=== PATIENT | female | born 1965 | race Hispanic/Latino ===

== ENCOUNTER 2018-11-24 07:49 | Emergency (ER) | payer BC ==
--- NOTE | 2018-11-24 08:26 | ER ---
Nurse's Notes [facility] Name: Laura Art Age: 52 yrs Sex: Female : 1965 Arrival Date: 11/24/2018 Time: 07:49 Bed 24 Private MD: MAR BLACK Diagnosis: Urticaria, unspecified Presentation: 11/24 07:54 Presenting complaint: Patient states: "I just started itching everywhere except my aa5 legs". Pt states "I took 2 Benadryl right before coming here". Transition of care: patient was not received from another setting of care. Onset: The symptoms/episode began/occurred 1 hour(s) ago. Risk Assessment: Do you want to hurt yourself or someone else? Patient reports no desire to harm self or others. Initial Sepsis Screen: Does the patient meet any 2 criteria? No. Patient's initial sepsis screen is negative. Does the patient have a suspected source of infection? No. Patient's initial sepsis screen is negative. Care prior to arrival: None. 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 - Social history:: Smoking status: Patient/guardian denies using tobacco. - Ebola Screening: : No symptoms or risks identified at this time. - Family history:: not pertinent. - Hospitalizations: : No recent hospitalization is reported. Screenin:00 Abuse screen: Denies threats or abuse. Nutritional screening: No deficits noted. aa5 Tuberculosis screening: No symptoms or risk factors identified. Fall Risk None identified. Assessment: 08:01 General: Appears uncomfortable, Behavior is calm, cooperative. Pain: Denies pain. aa5 Neuro: Level of Consciousness is awake, alert, obeys commands, Oriented to person, place, time, situation. Cardiovascular: Capillary refill < 3 seconds is brisk in bilateral fingers Patient's skin is warm and dry. Respiratory: Airway is patent Respiratory effort is even, unlabored, Respiratory pattern is regular, symmetrical. GI: No signs and/or symptoms were reported involving the gastrointestinal system. : No signs and/or symptoms were reported regarding the genitourinary system. EENT: No signs and/or symptoms were reported regarding the EENT system. Derm: Skin is pink, warm \\T\\ dry. Reports itching to arms, head, feet, hands, and chest that began about an hour ago. Musculoskeletal: Range of motion: intact in all extremities. Vital Signs: 07:56 BP 171 / 83; Pulse 70; Resp 18 S; Temp 98.0(O); Pulse Ox 100% on R/A; Weight 67.13 kg aa5 (R); Height 5 ft. 3 in. (160.02 cm) (R); Pain 0/10; 07:56 Body Mass Index 26.22 (67.13 kg, 160.02 cm) aa5 ED Course: 07:49 Patient arrived in ED. sb2 07:50 MAR BLACK is Private Physician. sb2 07:54 Arm band placed on. aa5 07:54 Patient has correct armband on for positive identification. Bed in low position. Call aa5 light in reach. Side rails up X 1. 07:55 Triage completed. aa5 07:55 Jens Gutierrez MD is Attending Physician. rn 07:57 Chitra Tovar, LEIA is Primary Nurse. aa5 08:16 No provider procedures requiring assistance completed. aa5 08:38 IV discontinued, intact, bleeding controlled, No redness/swelling at site. Pressure ss dressing applied. Administered Medications: 08:19 Drug: SOLU-Medrol 125 mg Route: IM; Site: right gluteus; aa5 08:39 Follow up: Response: No adverse reaction; Marked relief of symptoms ss Outcome: 08:25 Discharge ordered by . rn 08:38 Discharged to home ambulatory. ss 08:38 Condition: good 08:38 Discharge instructions given to patient, family, Instructed on discharge instructions, follow up and referral plans. medication usage, Demonstrated understanding of instructions, follow-up care, medications, Prescriptions given X 2. 08:38 Patient left the ED. ss Signatures: Jens Gutierrez MD MD rn Calderon, Audri, RN RN aa5 Caryl Carbajal RN RN Adriana Reid sb2
--- NOTE | 2018-11-24 08:26 | EDPHYS ---
Physician Documentation [facility] Name: Laura Art Age: 52 yrs Sex: Female : 1965 Arrival Date: 11/24/2018 Time: 07:49 Bed 24 Private MD: MAR BLACK ED Physician Jens Gutierrez HPI: 11/24 08:04 This 52 yrs old Female presents to ER via Ambulatory with complaints of rn Allergic Reaction. 08:04 The patient presents with itching, rash. Onset: The symptoms/episode began/occurred rn just prior to arrival. Possible causes: The patient has no known obvious cause for the symptoms. At home the patient or guardian has treated the symptoms with Benadryl. Severity of symptoms: At their worst the symptoms were mild in the emergency department the symptoms are unchanged. The patient has experienced a previous episode. 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 No changes in medication or new exposures. No sob or swelling.. 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 - Social history:: Smoking status: Patient/guardian denies using tobacco. - Ebola Screening: : No symptoms or risks identified at this time. - Family history:: not pertinent. - Hospitalizations: : No recent hospitalization is reported. ROS: 08:04 Constitutional: Negative for fever, chills, and weight loss, Eyes: Negative for injury, rn pain, redness, and discharge, ENT: Negative for injury, pain, and discharge, Neck: Negative for injury, pain, and swelling, Cardiovascular: Negative for chest pain, palpitations, and edema, Respiratory: Negative for shortness of breath, cough, wheezing, and pleuritic chest pain, Abdomen/GI: Negative for abdominal pain, nausea, vomiting, diarrhea, and constipation, Skin: + rash and itching Neuro: Negative for headache, weakness, numbness, tingling, and seizure. Exam: 08:04 Constitutional: This is a well developed, well nourished patient who is awake, alert, rn and in no acute distress. Head/Face: Normocephalic, atraumatic. ENT: No oral swelling, MMM, no stridor Respiratory: Lungs have equal breath sounds bilaterally, clear to auscultation. No increased work of breathing, no retractions or nasal flaring. Skin: Warm, dry, + very mild urticaria bilateral upper ext with excoriations MS/ Extremity: Pulses equal, no cyanosis. Neurovascular intact. Full, normal range of motion. Equal circumference. Neuro: Awake and alert, GCS 15, oriented to person, place, time, and situation. Cranial nerves II-XII grossly intact. Motor strength 5/5 in all extremities. Sensory grossly intact. Cerebellar exam normal. Normal gait. Vital Signs: 07:56 BP 171 / 83; Pulse 70; Resp 18 S; Temp 98.0(O); Pulse Ox 100% on R/A; Weight 67.13 kg aa5 (R); Height 5 ft. 3 in. (160.02 cm) (R); Pain 0/10; 07:56 Body Mass Index 26.22 (67.13 kg, 160.02 cm) aa5 MDM: 07:58 Patient medically screened. rn 08:24 Differential diagnosis: urticaria. Data reviewed: vital signs, nurses notes, and as a rn result, I will discharge patient. Counseling: I had a detailed discussion with the patient and/or guardian regarding: the historical points, exam findings, and any diagnostic results supporting the discharge/admit diagnosis, the need for outpatient follow up, to return to the emergency department if symptoms worsen or persist or if there are any questions or concerns that arise at home. Response to treatment: the patient's symptoms have mildly improved after treatment, and as a result, I will discharge patient. Special discussion: I discussed with the patient/guardian in detail that at this point there is no indication for admission to the hospital. It is understood, however, that if the symptoms persist or worsen the patient needs to return immediately for re-evaluation. Administered Medications: :19 Drug: SOLU-Medrol 125 mg Route: IM; Site: right gluteus; aa5 08:39 Follow up: Response: No adverse reaction; Marked relief of symptoms ss Disposition: 11/24/18 08:25 Discharged to Home. Impression: Urticaria, unspecified. - Condition is Stable. - Discharge Instructions: Hives. - Prescriptions for Prednisone 20 mg Oral Tablet - take 3 tablet by ORAL route once daily for 5 days; 15 tablet. EpiPen 0.3 mg Injection auto- injector - inject 1 pen by INTRAMUSCULAR route one time As needed Inject into the outer portion of the thigh, through clothing if necessary. Indicated in the emergency treatment of allergic reactions; 1 Pack. - Medication Reconciliation Form, Thank You Letter, Antibiotic Education, Prescription Opioid Use, Work release form, Family Work Release form. - Follow up: Private Physician; When: As needed; Reason: Recheck today's complaints, Re-evaluation by your physician. - Problem is new. - Symptoms have improved. Signatures: Jens Gutierrez MD MD rn Calderon, Audri RN RN aa5 Caryl Carbajal RN RN ss Corrections: (The following items were deleted from the chart) 08:38 08:25 11/24/2018 08:25 Discharged to Home. Impression: Urticaria, unspecified. ss Condition is Stable. Forms are Medication Reconciliation Form, Thank You Letter, Antibiotic Education, Prescription Opioid Use. Follow up: Private Physician; When: As needed; Reason: Recheck today's complaints, Re-evaluation by your physician. Problem is new. Symptoms have improved. rn
[2018-11-24] MEDS ORDERED: METHYLPREDNISOLONE 125 MG INJ ONE (08:27)
== END 2018-11-24 08:38 | disposition home or self-care (01) ==
LOC: ER 07:49
DX: L50.9 Urticaria, unspecified (principal)
CPT/HCPCS: 96372; 99283; J2930

== ENCOUNTER 2023-05-09 08:04 | Observation (INO) | payer SELFPAY ==
--- OUTSIDE RECORDS SUMMARY | 2023-05-09 08:06 | XMS REPORT | Continuity of Care Document ---
:1965 Author Organization [facility] t Address [address] [place] [address] Care Team Providers Name Role Phone Unavailable Unavailable Unavailable Problems This patient has no known problems. Allergies, Adverse Reactions, Alerts This patient has no known allergies or adverse reactions. Medications This patient has no known medications. Procedures This patient has no known procedures. Encounters Start End Encounter Admission Attending Care Care Encounter Source Date/Time Date/Time Type Type Clinicians Facility Department ID 2022-12-13 2022-12-13 Outpatient [facility] [id number] Dylan 11:28:41 11:28:41 [id number] [facility] 2022-12-03 2022-12-03 Outpatient [facility] [id number] Dylan 10:11:41 10:11:41 0116 [facility] 2022-12-01 2022-12-01 Outpatient [facility] [id number] Dylan 13:51:25 13:51:25 0114 [facility] Results Test Description Test Time Test Comments Results Result Comments Source H. PYLORI (BREATH) 2022-12-04 14:28:21 Test Item Value Reference Range Interpretation Comme nts H. PYLORI (BREATH) (test code NEGATIVE NEGATIVE UNLESS OTHERWISE INDICATED, ALL = 56213) TESTING PERFORM ED ATCLINICAL PATHOLOGY [employer] 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 CLIA NUMBER [id number] CAP ACCREDITATION N O. [id number] CBC W/AUTO DIFF WITH [id number] 03:37:54 Test Item Value Reference Range Interpretation Comments WBC (test code = 5.3 K/UL 3.5-11.0 1001) RBC (test code = 4.56 M/UL 3.80-5.40 1002) HEMOGLOBIN (test code 13.3 G/DL 11.5-15.5 = 1003) HEMATOCRIT (test code 39.9 % 34.0-45.0 = 1004) MCV (test code = 87.5 fL 80.0-99.0 1005) MCH (test code = 29.2 PG 25.0-33.0 1006) MCHC (test code = 33.3 G/DL 31.0-36.0 1007) RDW (test code = 13.1 % 11.5-15.0 1038) NEUTROPHILS (test 55.4 % code = 1008) LYMPHOCYTES (test 37.8 % code = 1010) MONOCYTES (test code 4.5 % = 1011) EOSINOPHILS (test 1.5 % code = 1012) BASOPHILS (test code 0.6 % = 1013) IMMATURE GRANULOCYTES 0.2 % (test code = 1036) NUCLEATED RBCS (test 0.0 /100 WBC'S See_Comment [Aut omated code = 1065) message] The sy stem which generated this result transmitted reference range : 0.0. The refere nce range was not u sed to interpret th is result as normal/abnormal . PLATELET COUNT (test 238 K/UL 130-400 code = 1015) ABSOLUTE NEUTROPHILS 2.93 K/UL 1.50-7.50 (test code = 1066) ABSOLUTE LYMPHOCYTES 2.00 K/UL 1.00-4.00 (test code = 1067) ABSOLUTE MONOCYTES 0.24 K/UL 0.20-1.00 (test code = 1068) ABSOLUTE EOSINOPHILS 0.08 K/UL 0.00-0.50 (test code = 1040) ABSOLUTE BASOPHILS 0.03 K/UL 0.00-0.20 (test code = 1069) ABS IMMATURE 0.01 K/UL 0.00-0.10 GRANULOCYTES (test code = 1020) ABS NUCLEATED RBCS 0.00 K/UL 0.00-0.11 (test code = 37872) COMPREHENSIVE METABOLIC [id number] 03:25:24 Test Item Value Reference Range Interpretation Comments GLUCOSE (test code = 89 MG/DL 70-99 2216) BUN (test code = 11 MG/DL 6-20 2207) CREATININE (test 0.73 MG/DL 0.60-1.30 code = 2214) eGFR (2020 CKD-EPI) 97 ML/MIN/1.73 >60 (test code = 02429) CALC BUN/CREAT (test 15 RATIO 6-28 code = 223) SODIUM (test code = 141 MEQ/L 654-520 2808) POTASSIUM (test code 4.7 MEQ/L 3.5-5.4 = 2227) CHLORIDE (test code 104 MEQ/L 95-107 = 2214) CARBON DIOXIDE (test 27 MEQ/L 19-31 code = 2205) CALCIUM (test code = 9.9 MG/DL 8.5-10.5 2208) PROTEIN, TOTAL (test 7.1 G/DL 6.1-8.3 code = 2228) ALBUMIN (test code = 4.3 G/DL 3.5-5.2 2200) CALC GLOBULIN (test 2.8 G/DL 1.9-3.7 code = 2239) CALC A/G RATIO (test 1.5 RATIO 1.0-2.6 code = 2233) BILIRUBIN, TOTAL 0.2 MG/DL See_Comment [Automated message] (test code = 2206) [employer] which generated this result transmit tan reference range : <=1.2. The refe rence range was not u sed to interpret th is result as normal/abnormal . ALKALINE PHOSPHATASE 83 U/L 40-133 (test code = 2203) AST (test code = 13 U/L 9-40 2217) ALT (test code = 19 U/L 5-40 2218)
[2023-05-09 08:44] LABS: Specific Gravity 1.025 (1.005-1.030); Urine Bacteria None Seen /HPF (<20); Urine Bilirubin NEGATIVE (Negative); Urine Blood Trace (Negative); Urine Clarity Turbid (Clear); Urine Color Light-Yellow (Yellow); Urine Glucose NEGATIVE (Negative); Urine Mucus Slight /HPF (None Seen); Urine Protein TRACE (Negative); Urine RBC <5 /HPF (None Seen); Urine Urobilinogen Normal (Normal); Urine pH 6.5 (5.0-7.0)
[2023-05-09] MEDS ORDERED: MORPHINE 4 MG/ML SYR ONE ×2 (08:47→10:13)
[2023-05-09] MEDS ORDERED: NA CHLORIDE 0.9% 1,000 ML ONE (08:48)
[2023-05-09] MEDS ORDERED: ONDANSETRON 4 MG/2 ML VIAL ONE ×2 (08:48→12:03)
[2023-05-09 08:54] LABS: Absolute Lymphocytes (CBC) 1.1 K/uL (0.7-4.9); Hematocrit 40.1 % (36.0-45.0); Lymphocytes % 8.1 % (15.3-44.8); MCV 87.5 fL (80-100); MPV 10.7 fL (7.6-11.3); RBC Red Blood Cell Count 4.58 M/uL (3.86-4.86)
[2023-05-09 09:23] LABS: Albumin 3.5 g/dL (3.4-5.0); Bilirubin Total 0.5 mg/dL (0.2-1.0); Potassium 3.5 mEq/L (3.5-5.1); Protein, Total 7.6 g/dL (6.4-8.2)
--- NOTE | 2023-05-09 09:55 | RAD REPORT ---
EXAM DESCRIPTION: CT - Abdomen Pelvis W Contrast - 05/09/2023 9:36 am CLINICAL HISTORY: Abdominal pain COMPARISON: none. TECHNIQUE: Computed axial tomography of the abdomen pelvis was obtained. 100 cc Isovue-300 was admin istered intravenously. Oral contrast was not requested which limits evaluation of bowel and appendix All CT scans are performed using dose optimization technique as appropriate and may include automated exposure control or mA/KV adjustment according to patient size. FINDINGS: Cholecystectomy The liver, spleen, pancreas, adrenal and kidneys appear unremarkable. There is no evidence of diverticulitis. The appendix is dilated and fluid-filled. Mild stranding within the adjacent fat. The appendix extend s inferior laterally from the cecum. No free air. No abscess 13 centimeter mass midline within pelvis abutting uterus. It contains fat, fluid calcification. It re presents a dermoid IMPRESSION: Appendicitis 13 centimeter pelvic dermoid
[2023-05-09] MEDS ORDERED: PIPERACIL/TAZO 3.375 GM VIAL IV ONE (10:13)
[2023-05-09] MEDS ORDERED: NA CHLORIDE 0.9% 100 ML ONE (10:13)
--- NOTE | 2023-05-09 10:15 | ER ---
Nurse's Notes [facility] Name: Laura Art Age: 57 yrs Sex: Female : 1965 Arrival Date: 05/09/2023 Time: 08:04 Bed 7 Private MD: Diagnosis: Unspecified acute appendicitis Presentation: 05/09 08:07 Chief complaint: Patient states: RUQ abdominal pain that radiates to her RLQ and to her cm10 back when she is laying down. Patient reports that the pain started last night and has had one episode of vomiting. Coronavirus screen: Vaccine status: Patient reports being unvaccinated. Client denies travel out of the [place] in the last 14 days. At this time, the client does not indicate any symptoms associated with coronavirus-19. Ebola Screen: No symptoms or risks identified at this time. Initial Sepsis Screen: Does the patient meet any 2 criteria? No. Patient's initial sepsis screen is negative. Does the patient have a suspected source of infection? No. Patient's initial sepsis screen is negative. Risk Assessment: Do you want to hurt yourself or someone else? Patient reports no desire to harm self or others. Onset of symptoms was May 08, 2023. 08:07 Method Of Arrival: Ambulatory cm10 08:07 Acuity: LEOBARDO 3 cm10 Triage Assessment: 08:11 General: Appears in no apparent distress. uncomfortable, Behavior is calm, cooperative. cm10 Historical: - Allergies: 08:10 No Known Allergies; cm10 - Home Meds: 08:10 Nexium Oral [Active]; cm10 - PMHx: 08:10 GERD; cm10 - PSHx: 08:10 Cholecystectomy; cm10 - Immunization history:: Adult Immunizations unknown. - Social history:: Smoking status: Patient denies any tobacco usage or history of. Screenin:53 [facility] ED Fall Risk Assessment (Adult) History of falling in the last 3 months, ph including since admission No falls in past 3 months (0 pts) Confusion or Disorientation No (0 pts) Intoxicated or Sedated No (0 pts) Impaired Gait No (0 pts) Mobility Assist Device Used No (0 pt) Altered Elimination No (0 pt) Score/Fall Risk Level 0 - 2 = Low Risk Oriented to surroundings, Maintained a safe environment, Hourly rounding (assess needs \T\ fall precautionary measures) done. Abuse screen: Denies threats or abuse. Denies injuries from another. Nutritional screening: No deficits noted. Tuberculosis screening: No symptoms or risk factors identified. Assessment: 08:52 General: Appears in no apparent distress. uncomfortable, Behavior is calm, cooperative, ph appropriate for age, Reports chills for fever for 0-12 hours. Pain: Complains of pain in right upper quadrant. Neuro: Level of Consciousness is awake, alert, obeys commands, Oriented to person, place, time, situation. Cardiovascular: Capillary refill < 3 seconds in bilateral fingers Patient's skin is warm and dry. Respiratory: Airway is patent Respiratory effort is even, unlabored. GI: Abdomen is round non-distended, Bowel sounds present X 4 quads. Abd is soft X 4 quads Reports upper abdominal pain, nausea, Patient currently denies diarrhea, vomiting. Derm: Skin is pink, warm \T\ dry. 10:11 Reassessment: Pt c/o abdominal pain. Notified ERP. See [facility] for orders. ld1 11:27 Reassessment: Patient appears in no apparent distress at this time. Patient and/or ph family updated on plan of care and expected duration. Pain level reassessed. Patient is alert, oriented x 3, equal unlabored respirations, skin warm/dry/pink. OR nurse at bedside, pt taken to OR. Vital Signs: 08:07 BP 157 / 77; Pulse 73; Resp 18; Temp 98.6(O); Pulse Ox 100% on R/A; Weight 65.32 kg; cm10 Height 5 ft. 3 in. ; Pain 10/10; 09:21 BP 131 / 69; Pulse 60; Resp 18; Pulse Ox 100% on R/A; ph 10:11 BP 143 / 93; Pulse 65; Resp 18; Pulse Ox 100% on R/A; Pain 9/10; ld1 08:07 Body Mass Index 25.51 (65.32 kg, 160.02 cm) cm10 08:07 Pain Scale: Adult cm10 10:11 Pain Scale: Adult ld1 ED Course: 08:06 Patient arrived in ED. rg4 08:10 Triage completed. cm10 08:11 Arm band placed on Patient placed in an exam room, on a stretcher. cm10 08:12 Isabel Saldana [facility]-C [facility] kb 08:12 Ramon Mack MD is Attending Physician. kb 08:20 Miguelina Mandujano, RN is Primary Nurse. ph 08:29 Inserted saline lock: 20 gauge in right antecubital area, using aseptic technique. ph 08:54 Patient has correct armband on for positive identification. Placed in gown. Bed in low ph position. Call light in reach. Side rails up X2. Pulse ox on. NIBP on. Door closed. Noise minimized. Warm blanket given. 09:38 CT Abd/Pelvis - IV Contrast Only In Process Unspecified. EDMS 10:11 No provider procedures requiring assistance completed. ld1 10:14 Aren Fernandez MD is Hospitalizing Provider. kb 11:28 Patient admitted, IV remains in place. ph Administered Medications: 08:52 Drug: NS 0.9% IV 1000 ml Route: IV; Rate: 1 bolus; Site: right antecubital; ph 11:28 Follow up: Response: No adverse reaction; IV Status: Infusion continued upon admission ph 08:52 Drug: Ondansetron IVP 4 mg Route: IVP; Site: right antecubital; ph 11:28 Follow up: Response: No adverse reaction ph 08:52 Drug: morphine IVP or IV 4 mg Route: IVP; Infused Over: 4 mins; Site: right antecubital;ph 11:28 Follow up: Response: No adverse reaction ph 10:24 Drug: Piperacillin-Tazobactam IVPB 3.375 grams Route: IVPB; Infused Over: 60 mins; ph Site: right antecubital; 11:00 Follow up: Response: No adverse reaction; IV Status: Completed infusion ph 10:25 Drug: morphine IVP or IV 4 mg Route: IVP; Infused Over: 4 mins; Site: right antecubital;ph 11:28 Follow up: Response: No adverse reaction ph Medication: 08:53 VIS not applicable for this client. ph Outcome: 10:14 Decision to Hospitalize by Provider. kb 11:28 Admitted to OR accompanied by tech, family with patient, via wheelchair, with chart. ph 11:28 Condition: stable 11:28 Instructed on the need for admit. 11:29 Patient left the ED. ph Signatures: Dispatcher [employer] EDMS Isabel Saldana FNP-C FNP-Miguelina Leon, RN RN ph Emmanuel, Paula rg4 Isela Rolon, RN RN ld1 Eduarda Fernandez, RN RN cm10
--- NOTE | 2023-05-09 10:15 | EDPHYS ---
Physician Documentation [facility] Name: Laura Art Age: 57 yrs Sex: Female : 1965 Arrival Date: 05/09/2023 Time: 08:04 Bed 7 Private MD: ED Physician Ramon Mack HPI: 05/09 08:40 This 57 yrs old Female presents to ER via Ambulatory with complaints of kb Abdominal Pain, Flank Pain, Nausea. 08:40 The patient presents with abdominal pain in the right upper quadrant, right lower kb quadrant. Onset: The symptoms/episode began/occurred yesterday. The symptoms radiate to the right flank. Associated signs and symptoms: Pertinent positives: nausea, vomiting, Pertinent negatives: diarrhea, fever. The symptoms are described as constant. Modifying factors: The symptoms are alleviated by nothing, the symptoms are aggravated by nothing. Severity of pain: At its worst the pain was moderate in the emergency department the pain is unchanged. The patient has not experienced similar symptoms in the past. The patient has not recently seen a physician. pt reports RLQ pain that started yesterday and has gotten worse. Now pain is in RUQ and radiates to right flank. Denies fever. . Historical: - Allergies: 08:10 No Known Allergies; cm10 - Home Meds: 08:10 Nexium Oral [Active]; cm10 - PMHx: 08:10 GERD; cm10 - PSHx: 08:10 Cholecystectomy; cm10 - Immunization history:: Adult Immunizations unknown. - Social history:: Smoking status: Patient denies any tobacco usage or history of. ROS: 08:39 Constitutional: Negative for fever, chills, and weight loss. kb 08:39 Abdomen/GI: Positive for abdominal pain, nausea and vomiting, Negative for diarrhea, constipation. 08:39 All other systems are negative. Exam: 08:39 Constitutional: This is a well developed, well nourished patient who is awake, alert, kb and in no acute distress. Head/Face: Normocephalic, atraumatic. ENT: Moist Mucous membranes Cardiovascular: Regular rate and rhythm with a normal S1 and S2. No gallops, murmurs, or rubs. No pulse deficits. Respiratory: Respirations even and unlabored. No increased work of breathing. Talking in full sentences Skin: Warm, dry with normal turgor. Normal color. MS/ Extremity: Pulses equal, no cyanosis. Neurovascular intact. Full, normal range of motion. Neuro: Awake and alert, GCS 15, oriented to person, place, time, and situation. Moves all extremities. Normal gait. 08:39 Abdomen/GI: Inspection: abdomen appears normal, Bowel sounds: normal, Palpation: soft, in all quadrants, moderate abdominal tenderness, in the right lower quadrant. Vital Signs: 08:07 BP 157 / 77; Pulse 73; Resp 18; Temp 98.6(O); Pulse Ox 100% on R/A; Weight 65.32 kg; cm10 Height 5 ft. 3 in. ; Pain 10/10; 09:21 BP 131 / 69; Pulse 60; Resp 18; Pulse Ox 100% on R/A; ph 10:11 BP 143 / 93; Pulse 65; Resp 18; Pulse Ox 100% on R/A; Pain 9/10; ld1 08:07 Body Mass Index 25.51 (65.32 kg, 160.02 cm) cm10 08:07 Pain Scale: Adult cm10 10:11 Pain Scale: Adult ld1 MDM: 08:12 Patient medically screened. kb 08:40 Data reviewed: vital signs, nurses notes. kb 10:09 Differential diagnosis: appendicitis, non-specific abd pain, Pyelonephritis, kb Ureterolithiasis, urinary tract infection. Consideration of Admission/Observation Patient was admitted/placed on observation. Management of patient was discussed with the following: Supervisor Counseling And Guidance: Dr Fernandez will see pt in the ER. Counseling: I had a detailed discussion with the patient and/or guardian regarding: the historical points, exam findings, and any diagnostic results supporting the discharge/admit diagnosis, lab results, radiology results, the need for further work-up and treatment in the hospital. 05/09 08:17 Order name: CBC with Diff kb 05/09 08:17 Order name: CMP; Complete Time: 09:30 kb 05/09 08:17 Order name: Lipase; Complete Time: 09:30 kb 05/09 08:17 Order name: Urinalysis w/ reflexes; Complete Time: 08:51 kb 05/09 09:07 Order name: CBC Smear Scan EDMS 05/09 08:17 Order name: CT Abd/Pelvis - IV Contrast Only; Complete Time: 10:00 kb 05/09 08:17 Order name: IV Saline Lock; Complete Time: 08:29 kb 05/09 08:17 Order name: Labs collected and sent; Complete Time: 08:29 kb 05/09 08:47 Order name: Labs - recollect needed: green and lavender. please; Complete Time: 08:52 bc6 Administered Medications: 08:52 Drug: NS 0.9% IV 1000 ml Route: IV; Rate: 1 bolus; Site: right antecubital; ph 11:28 Follow up: Response: No adverse reaction; IV Status: Infusion continued upon admission ph 08:52 Drug: Ondansetron IVP 4 mg Route: IVP; Site: right antecubital; ph 11:28 Follow up: Response: No adverse reaction ph 08:52 Drug: morphine IVP or IV 4 mg Route: IVP; Infused Over: 4 mins; Site: right antecubital;ph 11:28 Follow up: Response: No adverse reaction ph 10:24 Drug: Piperacillin-Tazobactam IVPB 3.375 grams Route: IVPB; Infused Over: 60 mins; ph Site: right antecubital; 11:00 Follow up: Response: No adverse reaction; IV Status: Completed infusion ph 10:25 Drug: morphine IVP or IV 4 mg Route: IVP; Infused Over: 4 mins; Site: right antecubital;ph 11:28 Follow up: Response: No adverse reaction ph Disposition: 13:27 Co-signature as Attending Physician, Ramon Mack MD I agree with the assessment and kdr plan of care. Disposition Summary: 05/09/23 10:14 Hospitalization Ordered Hospitalization Status: Observation kb Provider: Aren Fernandez Condition: Stable kb Problem: new kb Symptoms: are unchanged kb Bed/Room Type: Standard kb Location: Telemetry/MedSurg (observation)(05/09/23 11:16) 6 Room Assignment: 221(05/09/23 11:16) 6 Diagnosis - Unspecified acute appendicitis kb Forms: - Medication Reconciliation Form kb - SBAR form kb Signatures: Dispatcher [employer] Isabel Roland, Ramon Núñez MD MD [facility] Miguelina Mandujano RN RN Rachel Hartley [facility] Eduarda Fernandez RN RN cm10 Corrections: (The following items were deleted from the chart) 11:16 10:14 Operating Room kb bc6 11:16 10:14 kb bc6
[2023-05-09 11:12] LABS: Platelet Estimate ADEQ; White Blood Cell Scan OK (OK)
[2023-05-09 11:13] LABS: Blood Morphology Comment NOT SEEN (NOT SEEN)
[2023-05-09] MEDS ORDERED: propofoL 200 MG/20 ML VIAL IV ONE (12:01)
[2023-05-09] MEDS ORDERED: ROCURONIUM 50 MG/5 ML VIAL IV ONE (12:02)
[2023-05-09] MEDS ORDERED: MIDAZOLAM HCL 2 MG/2 ML INJ ONE (12:02)
[2023-05-09] MEDS ORDERED: FENTANYL CITR 100 MCG/2 ML ONE (12:02)
[2023-05-09] MEDS ORDERED: LIDOCAINE 2% MPF 5 ML VIAL ONE (12:03)
[2023-05-09] MEDS ORDERED: Ringers Lactate 1,000 ML IV ONE (12:27)
[2023-05-09] MEDS ORDERED: EPHEDRINE SULF 50 MG/ML VIAL ONE (12:29)
[2023-05-09] MEDS ORDERED: MORPHINE 4 MG/ML SYR IV PRN (12:38)
[2023-05-09] MEDS ORDERED: ONDANSETRON 4 MG/2 ML VIAL IV PRN (12:38)
--- NOTE | 2023-05-09 12:40 | P.BOP ---
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
[2023-05-09] MEDS ORDERED: NEOSTIGMINE 1 MG/ML -10 ML VIAL ONE (12:44)
[2023-05-09] MEDS ORDERED: GLYCOPYRROLATE 0.2 MG/ML SYR ONE (12:45)
[2023-05-09] MEDS ORDERED: KETOROLAC 30 MG/ML INJ ONE (13:03)
[2023-05-09 14:33] VITALS: BMI 25.4
[2023-05-09] MEDS: NA CHLORIDE 0.9% 1,000 ML IV SCH ×2 (14:51→22:50)
[2023-05-09] MEDS ORDERED: PROMETHAZINE INJ 25 MG/ML AMP IV ONE (16:56)
--- NOTE | 2023-05-09 20:13 | HP ---
Date of Admission: 05/09/2023 Reason For Service: Acute appendicitis. History Of Present Illness: This is a case of a 57-year-old patient who comes to us with periumbilic al right lower quadrant tenderness that started yesterday associated with nausea and vomiting. The p atient came to the ER, had workup done, diagnosed with acute appendicitis, and a surgical evaluation was called for emergent surgery. She had no previous colonoscopies in the past. She claimed no medi andrés history and surgery she had in the past is cholecystectomy. Social History: She does not smoke. She does not drink alcohol. Family History: Unremarkable. The patient fully explained the importance of colonoscopies since she has not had one. Review of Systems: As per HPI. No dysuria, hematuria, hematochezia, or melena. The patient advised importance of breas t examination and mammograms. Physical Examination: General: The patient is awake and alert. Eyes: Pupils are equal and reactive. Anicteric. Neck: Supple. Chest: Clear. Heart: S1, S2. Abdomen: Right lower quadrant tenderness with psoas sign positive. Rovsing sign is positive. Breasts: Deferred. Pelvic: Deferred. Rectal: Deferred. Extremities: Good capillary refill. Neuro: Cranial nerves 2 through 12 grossly within normal limits. Imaging: CAT scan of the abdomen and pelvis interpreted by Dr. Molina as acute appendicitis. Ther e are some other issues that we discussed with her like the presence of a diverticulum, although no i nflammation and also the presence of a 13 cm mass on the area of the pelvis. She was advised that as soon as she finishes with the appendix and get better, to see her quality assurance associate for workup on that si nce we cannot rule out neoplasia. Assessment: A 57-year-old patient with acute appendicitis. The benefits, alternatives, and risks of emergent laparoscopic possible open appendectomy were fully explained, which include, but not are li mited to infection, bleeding, damage to adjacent structures, anesthesia complication, myocardial infa rction, and even . She also understands this may not relieve her symptoms and she might need mo re than one surgical intervention. The patient was booked in OR. JAYME/MITCHELL Voice ID: [id number]
[2023-05-09 22:43] VITALS: O2SAT 100
[2023-05-09] MEDS: HYDROCODONE/APAP 5/325 MG TAB PO PRN (22:49)
[2023-05-10] MEDS: NA CHLORIDE 0.9% 1,000 ML IV SCH ×2 (05:43→13:47)
[2023-05-10 06:08] LABS: Absolute Lymphocytes (CBC) 1.6 K/uL (0.7-4.9); Hematocrit 31.2 % (36.0-45.0); Lymphocytes % 15.4 % (15.3-44.8); MCV 88.3 fL (80-100); MPV 10.8 fL (7.6-11.3); RBC Red Blood Cell Count 3.53 M/uL (3.86-4.86)
[2023-05-10 06:24] LABS: Potassium 3.9 mEq/L (3.5-5.1)
[2023-05-10] MEDS: HYDROCODONE/APAP 5/325 MG TAB PO PRN ×2 (08:34→16:01)
[2023-05-10 16:14] VITALS: BP 102/55; TEMP 97.8
== END 2023-05-10 19:00 | disposition home or self-care (01) ==
LOC: ER 08:04 → ERHOLD 10:15 → 2ND 12:03
PROVIDERS: ADMIT Surgery; ATTEND Surgery
PROC: 0DTJ4ZZ Resection of Appendix, Percutaneous Endoscopic Approach (ICD-10-PCS; principal; 2023-05-09 12:00)
DX: K35.80 Unspecified acute appendicitis (principal)
CPT/HCPCS: 36415; 74177; 80048; 80053; 81001; 83690; 85025; 88304; 94010; 96361; 96365; 96375; 99285; G0378; J2001; J2250; J2405; J2543; J2550; J2704; J2710; J3010; J7030; J7120; Q9967

== ENCOUNTER 2025-08-08 19:12 | Emergency (ER) | payer SELFPAY ==
--- OUTSIDE RECORDS SUMMARY | 2025-08-08 19:15 | XMS REPORT | Clinical Summary ---
Author Name Unknown Organization [facility] Address [address] [place] [address] Care Team Providers Care Pharmacy Intake Coordinator Name Role Phone Physician, Outside Primary Care Provider Unavail able Ruth Watson Unavailable [phone] Ruth Watson Unavailable [phone] Social History Tobacco Use Types Packs/Day Years Used Date Smoking Tobacco: Never Assessed Comments No Sex and Gender Information Value Date Recorded Sex Assigned at Not on file Legal Sex Female 9:57 AM CDT Gender Identity Not on file Sexual Orientation Not on file Obstetrics History Para Term AB IAB SAB Ectopic Multiple Livin g Live Births 3 3 Date Outcome GA Total Labor Labor/2nd/3rd Weight Sex Type Anes PTL Ellen A1 A5 Name Clin Plan of Treatment Health Maintenance Due Date Last Done Comments Pneumococcal Vaccine: 50+ Years (1 of 1 - PCV) 017 COVID-19 Vaccine ( season) 2025 Influenza Vaccine (#1) 2025 Care Teams Pharmacy Intake Coordinator Relationship Specialty Start Date End Date Physician, [place] [address] PCP - General Oncology 07/29/24 Ruth Watson [address] [place] [address] PCP - External Follow Up A 07/29/24 Ruth Watson [address] [place] [address] PCP - External Referring 07/29/24
[2025-08-08] MEDS ORDERED: HYDROCODONE/APAP 5/325 MG TAB ONE (21:02)
--- NOTE | 2025-08-08 21:19 | RAD REPORT ---
EXAMINATION: Head C Spine Mpr Wo Con CLINICAL INDICATION: Female, 59 years old. TRAUMA TECHNIQUE: Axial CT images from the skull base to the vertex without intravenous contrast. Axial CT i mages through the cervical spine were obtained without intravenous contrast. Sagittal and coronal reformatted images were created from the data set. Coronal and sagittal reformatted images were creat ed from the data set. One or more of the following dose reduction techniques were used: Automated exposure control, adjustment of the mA and/or kV according to patient size, and/or iterative reconstr uction. Unless otherwise specified, incidental findings do not require dedicated imaging follow-up. [id number]. COMPARISON: No prior exams FINDINGS: Head: INTRACRANIAL: No acute intracranial hemorrhage. No acute large vascular territory infarct. No hydroce phalus. No mass effect or midline shift. No significant white matter disease. VASCULATURE: No visualized abnormalities in the arteries or dural venous sinuses. SCALP/SKULL: No calvarial fracture identified. No acute soft tissue abnormality. SINUSES: The visualized paranasal sinuses are mostly clear. No significant mastoid fluid. Cervical spine: ALIGNMENT: The cervical spine has normal alignment without scoliosis or spondylolisthesis. BONE: Vertebral body heights are maintained. No aggressive osseous lesions. DEGENERATIVE: No significant focal degenerative changes. SOFT TISSUE: No significant abnormalities in the soft tissue of the neck. The visualized lung apices are clear. IMPRESSION: No acute intracranial abnormality. No acute fracture or traumatic malalignment of the cervical spine.
--- NOTE | 2025-08-08 21:21 | RAD REPORT ---
EXAMINATION: Facial Bones W/ Mpr CLINICAL INDICATION: Female, 59 years old. TRAUMA TECHNIQUE: Axial images were obtained through the facial bones and orbits without intravenous contras t. Sagittal and coronal reconstructions were created from the data. One or more of the following dose reduction techniques were used: Automated exposure control, adjustment of the mA and/or kV accor ding to patient size, and/or iterative reconstruction. Unless otherwise specified, incidental findings do not require dedicated imaging follow-up. [id number]. COMPARISON: No prior exams FINDINGS: SOFT TISSUE: No significant abnormalities. BONES: No evidence of fracture, dislocation, or aggressive osseous lesions. No lesion of the visuali zed skull base or calvarium. ORBITS: The globes are intact. No intraorbital hemorrhage or mass. SINUSES: The paranasal sinuses and tympanomastoid cavities are predominantly clear. BRAIN: No acute abnormalities in the visualized intracranial structures. IMPRESSION: No facial fracture identified.
--- NOTE | 2025-08-08 21:38 | RAD REPORT ---
EXAMINATION: Humerus Left VIEWS: Two views CLINICAL INDICATION: Female, 59 years old. fall COMPARISON: No prior exams IMPRESSION: No acute fracture. No acute soft tissue abnormality.
--- NOTE | 2025-08-08 21:38 | RAD REPORT ---
EXAMINATION: Femur Left VIEWS: Four views CLINICAL INDICATION: Female, 59 years old. fall COMPARISON: No prior exams IMPRESSION: No left femur fracture. No acute soft tissue abnormality.
--- NOTE | 2025-08-08 21:39 | RAD REPORT ---
EXAMINATION: Tib Fib Left VIEWS: Two views CLINICAL INDICATION: Female, 59 years old. fall COMPARISON: No prior exams IMPRESSION: No acute fracture. No acute soft tissue abnormality.
--- NOTE | 2025-08-08 21:39 | RAD REPORT ---
EXAMINATION: Pelvis CLINICAL INDICATION: Female, 59 years old. fall COMPARISON: No prior exam. FINDINGS: No acute fracture. No malalignment/dislocation. No significant focal degenerative change. Other: Surgical clips in the right lower quadrant. IMPRESSION: No acute osseous abnormality.
--- NOTE | 2025-08-08 23:03 | ER ---
Nurse's Notes [facility] Name: Laura Art Age: 59 yrs Sex: Female : 1965 Arrival Date: 08/08/2025 Time: 19:12 Bed [id number] Private MD: Diagnosis: Contusion of unspecified part of head, initial encounter;Contusion of left upper arm;Contusion of left hip;Contusion of left knee;Contusion of left lower leg;Fall on same level from slipping, tripping and stumbling with subsequent striking against object Presentation: 08/08 19:25 Chief complaint: Patient states: tripped and fell yesterday hitting her left me1 forehead/eye on a brick column. No LOC but did feel dizzy afterwards. Dizziness has resolved. No blood thinners. C/o pain to head, L ear, L shoulder and upper arm, palm of left hand and L knee and lateral thigh. Pain 5/10. Decided to come to ER today due to new onset of L ear pain. Coronavirus screen: Vaccine status: Patient reports being unvaccinated. Ebola Screen: No symptoms or risks identified at this time. Mechanism of Injury: The problem was sustained at a friend's house, resulted from a fall, while walking, trip and fall. Initial Sepsis Screen: Does the patient meet any 2 criteria? No. Patient's initial sepsis screen is negative. Does the patient have a suspected source of infection? No. Patient's initial sepsis screen is negative. Risk Assessment: Do you want to hurt yourself or someone else? Patient reports no desire to harm self or others. Onset of symptoms was August 08, 2025 at 08:00. 19:25 Method Of Arrival: Ambulatory mo1 19:25 Acuity: LEOBARDO 3 me1 Triage Assessment: 19:29 General: Appears uncomfortable, well groomed, well developed, well nourished, Behavior me1 is calm, cooperative, appropriate for age. Pain: Complains of pain in forehead, left ear, anterior aspect of left shoulder, left bicep, heel of left hand, palm of left hand, lateral aspect of left thigh and left knee Pain does not radiate. Pain currently is 5 out of 10 on a pain scale. Quality of pain is described as aching, Pain began 1 day ago. Is continuous. EENT: Reports pain in left ear. Neuro: Level of Consciousness is awake, alert, obeys commands, Oriented to person, place, time, situation, Appropriate for age Reports headache. Cardiovascular: Patient's skin is warm and dry. Respiratory: Airway is patent Respiratory effort is even, unlabored, Respiratory pattern is regular, symmetrical. GI: No signs and/or symptoms were reported involving the gastrointestinal system. : No signs and/or symptoms were reported regarding the genitourinary system. Derm: Bruising that is dark purple, on forehead, left eye and left knee. Musculoskeletal: Reports pain in anterior aspect of left shoulder, left bicep, heel of left hand, palm of left hand, lateral aspect of left thigh, left knee, face and left ear. Injury Description: tripped and fell yesterday hitting her left forehead and eye on a brick column. Historical: - Allergies: 19:29 No Known Allergies; me1 - PMHx: 19:29 GERD; me1 - PSHx: 19:29 Cholecystectomy; Appendectomy; me1 - Immunization history:: Adult Immunizations up to date. - Infectious Disease History:: Denies. - Social history:: Smoking status: Patient denies any tobacco usage or history of. Screenin:34 [facility] ED Fall Risk Assessment (Adult) History of falling in the last 3 months, kb4 including since admission No falls in past 3 months (0 pts) Confusion or Disorientation No (0 pts) Intoxicated or Sedated No (0 pts) Impaired Gait No (0 pts) Mobility Assist Device Used No (0 pt) Altered Elimination No (0 pt) Score/Fall Risk Level 0 - 2 = Low Risk. [facility] ED Fall Risk Assessment (Adult) History of falling in the last 3 months, including since admission Yes- single mechanical fall (1 pt). Abuse screen: Denies threats or abuse. Denies injuries from another. Nutritional screening: No deficits noted. Tuberculosis screening: No symptoms or risk factors identified. Assessment: 21:34 Reassessment: Patient appears in no apparent distress at this time. No changes from kb4 previously documented assessment. Patient and/or family updated on plan of care and expected duration. Pain level reassessed. Reassessment: pain improved slightly with norco. General: Appears in no apparent distress. comfortable. 22:20 Reassessment: Patient and/or family updated on plan of care and expected duration. Pain kb4 level reassessed. Patient is alert, oriented x 3, equal unlabored respirations, skin warm/dry/pink. 23:17 Reassessment: Patient appears in no apparent distress at this time. No changes from kb4 previously documented assessment. Vital Signs: 19:25 BP 149 / 83; Pulse 71; Resp 19; Temp 98.3; Pulse Ox 100% ; Weight 61.69 kg; Height 5 me1 ft. 3 in. ; Pain 5/10; 21:33 BP 168 / 60; Pulse 62; Resp 18; Pulse Ox 98% on R/A; kb4 22:22 BP 119 / 65; Pulse 69; Resp 16; Pulse Ox 100% on R/A; kb4 23:17 BP 123 / 65; Pulse 57; Resp 18; Pulse Ox 97% on R/A; kb4 19:25 Body Mass Index 24.09 (61.69 kg, 160.02 cm) me1 19:25 Pain Scale: Adult me1 [place] Coma Score: 19:25 Eye Response: spontaneous(4). Motor Response: obeys commands(6). Verbal Response: me1 oriented(5). Total: 15. 20:45 Eye Response: spontaneous(4). Motor Response: obeys commands(6). Verbal Response: cp oriented(5). Total: 15. ED Course: 19:14 Patient arrived in ED. im 19:14 Hudson Nieves PA-C is PHCP. cp 19:14 Cedrick Figueredo DO is Attending Physician. cp 19:29 Triage completed. me1 19:29 Arm band placed on Patient placed in waiting room. me1 20:58 Amanda Paez, RN is Primary Nurse. kb4 21:07 CT Head C Spine In Process Unspecified. EDMS 21:07 CT Facial Bones W/O Con In Process Unspecified. EDMS 21:32 XRAY Humerus LEFT In Process Unspecified. EDMS 21:32 XRAY Femur LEFT In Process Unspecified. EDMS 21:32 XRAY Pelvis In Process Unspecified. EDMS 21:32 XRAY Tib Fib LEFT In Process Unspecified. EDMS 21:34 Patient has correct armband on for positive identification. Provided Education on:. kb4 21:34 No provider procedures requiring assistance completed. kb4 23:31 Patient did not have IV access during this emergency room visit. kb4 Administered Medications: 21:12 Drug: HYDROcodone-acetaminophen PO 5 mg-325 mg 1 tabs PO once Route: PO; kb4 23:18 Follow up: Response: No adverse reaction kb4 Medication: 23:18 VIS not applicable for this client. kb4 Outcome: 23:03 Discharge ordered by . shashi 23:30 Discharged to home ambulatory, with family, kb4 23:30 Condition: good 23:30 Discharge instructions given to patient, Instructed on discharge instructions, follow up and referral plans. medication usage, Demonstrated understanding of instructions, follow-up care, medications, Prescriptions given X 2, 23:31 Patient left the ED. kb4 Signatures: Dispatcher [employer] EDMS Hudson Nieves, PAMaggy PA-C Marion Mora Michelle, RN RN me1 Amanda Paez RN RN kb4
--- NOTE | 2025-08-08 23:03 | EDPHYS ---
Physician Documentation [facility] Name: Laura Art Age: 59 yrs Sex: Female : 1965 Arrival Date: 08/08/2025 Time: 19:12 Bed IW10 Private MD: ED Physician Cedrick Figueredo HPI: 08/08 20:45 This 59 yrs old Female presents to ER via Ambulatory with complaints of Head cp Injury-Adult. 20:45 The patient or guardian reports injury, pain. The complaints affect the left ear, left cp cheek and left eye. Onset: The symptoms/episode began/occurred yesterday, after trip and fall outside, struck left side of head against brick. no LOC. 20:45 Patient reports trip and fall outside yesterday causing her to strike left side of her cp head against a brick. No loss of consciousness but patient complains of left-sided head pain, left ear pain. Patient also reports landing on her left side causing pain to her left upper arm, left upper leg area, left hand and left lower leg. Historical: - Allergies: 19:29 No Known Allergies; me1 - PMHx: 19:29 GERD; me1 - PSHx: 19:29 Cholecystectomy; Appendectomy; me1 - Immunization history:: Adult Immunizations up to date. - Infectious Disease History:: Denies. - Social history:: Smoking status: Patient denies any tobacco usage or history of. ROS: 21:00 Eyes: Negative for injury, pain, redness, and discharge, cp 21:00 Constitutional: Negative for body aches, chills, fever, poor PO intake, 21:00 ENT: Positive for left era pain, 21:00 Cardiovascular: Negative for chest pain, palpitations, 21:00 Respiratory: Negative for cough, shortness of breath, wheezing, 21:00 Abdomen/GI: Negative for abdominal pain, vomiting, diarrhea, constipation, 21:00 Back: Negative for decreased range of motion, 21:00 MS/extremity: Positive for pain, of the left hand and left upper arm and left upper leg and left lower leg, Negative for decreased range of motion, deformity, 21:00 Neuro: Positive for headache, Negative for altered mental status, loss of consciousness, syncope, weakness, 21:00 All other systems are negative, Exam: 21:05 Constitutional: The patient appears in no acute distress, alert, awake, cp non-diaphoretic, non-toxic, well developed, well nourished, uncomfortable, 21:05 Head/face: Noted is abrasion(s), that are mild, of the left side of forehead, cp contusion, that is superficial, of the forehead, left ear and left cheek, swelling, that is mild, of the forehead and left cheek, 21:05 Eyes: Pupils: equal, round, and reactive to light and accomodation, Extraocular movements: intact throughout, Conjunctiva: normal, no exudate, no injection, Sclera: no appreciated abnormality, Lids and lashes: appear normal, bilaterally, 21:05 ENT: External ear(s): are unremarkable, Nose: is normal, Mouth: Lips: moist, Oral mucosa: moist, Posterior pharynx: Airway: no evidence of obstruction, patent, swelling, is not appreciated, erythema, is not appreciated, exudate, is not appreciated, 21:05 Neck: C-spine: vertebral tenderness, is not appreciated, crepitus, is not appreciated, ROM/movement: limited range of motion, is not appreciated, 21:05 Chest/axilla: Inspection: normal, Palpation: is normal, no crepitus, no tenderness, 21:05 Cardiovascular: Rate: normal, Rhythm: regular, Edema: is not appreciated, JVD: is not appreciated, 21:05 Respiratory: the patient does not display signs of respiratory distress, Respirations: normal, no use of accessory muscles, no retractions, labored breathing, is not present, Breath sounds: are clear throughout, no decreased breath sounds, no stridor, no wheezing, 21:05 Abdomen/GI: Inspection: abdomen appears normal, Palpation: abdomen is soft and non-tender, in all quadrants, 21:05 Back: vertebral tenderness, is not appreciated, 21:05 Musculoskeletal/extremity: Extremities: noted in the left upper arm: pain, tenderness, There is no evidence of decreased ROM, deformity, noted in the left upper leg: pain, tenderness, no evidence of decreased ROM, deformity, noted in the left lower leg: pain, tenderness, mild swelling, Noted in left knee: abrasion, tenderness, mild swelling, ROM: full active range of motion, in the left shoulder and left hip and left knee, 21:05 Neuro: Orientation: to person, place \T\ time. Mentation: is normal, Cerebellar function: is grossly normal, Motor: moves all fours, no focal deficits, Sensation: no obvious gross deficits, Vital Signs: 19:25 BP 149 / 83; Pulse 71; Resp 19; Temp 98.3; Pulse Ox 100% ; Weight 61.69 kg; Height 5 me1 ft. 3 in. ; Pain 5/10; 21:33 BP 168 / 60; Pulse 62; Resp 18; Pulse Ox 98% on R/A; kb4 22:22 BP 119 / 65; Pulse 69; Resp 16; Pulse Ox 100% on R/A; kb4 23:17 BP 123 / 65; Pulse 57; Resp 18; Pulse Ox 97% on R/A; kb4 19:25 Body Mass Index 24.09 (61.69 kg, 160.02 cm) me1 19:25 Pain Scale: Adult me1 Taylor Coma Score: 19:25 Eye Response: spontaneous(4). Motor Response: obeys commands(6). Verbal Response: me1 oriented(5). Total: 15. 20:45 Eye Response: spontaneous(4). Motor Response: obeys commands(6). Verbal Response: cp oriented(5). Total: 15. MDM: 19:23 Medical Screening Exam initiated cp 23:02 Data reviewed: vital signs, nurses notes, radiologic studies, CT scan, plain films, and cp as a result, I will discharge patient. 23:02 Differential diagnosis: Contusion of Hematoma on Laceration of Intracranial bleed- cp Concussion cerebral contusion. I considered the following discharge prescriptions or medication management in the emergency department Medications were administered in the Emergency Department. See MAR. Counseling: I had a detailed discussion with the patient and/or guardian regarding the historical points, exam findings, and any diagnostic results supporting the discharge/admit diagnosis, radiology results, to return to the emergency department if symptoms worsen or persist or if there are any questions or concerns that arise at home. Response to treatment: the patient's symptoms have mildly improved after treatment, and as a result, I will discharge patient. Special discussion: Based on the patient's history, exam and DX evaluation, there is no indication for emergent intervention or inpatient TX. It is understood by the patient/guardian that if the SXs persist or worsen they need to return immediately for re-evaluation. 08/08 20:29 Order name: CT Head C Spine; Complete Time: 21:54 cp 08/08 21:54 Interpretation: Reviewed report. cp 08/08 20:29 Order name: CT Facial Bones W/O Con; Complete Time: 21:54 cp 08/08 21:55 Interpretation: Report reviewed. cp 08/08 20:29 Order name: XRAY Humerus LEFT; Complete Time: 21:54 cp 08/08 20:29 Order name: XRAY Femur LEFT; Complete Time: 21:54 cp 08/08 20:29 Order name: XRAY Pelvis; Complete Time: 21:54 cp 08/08 20:29 Order name: XRAY Tib Fib LEFT; Complete Time: 21:54 cp Administered Medications: 21:12 Drug: HYDROcodone-acetaminophen PO 5 mg-325 mg 1 tabs PO once Route: PO; kb4 23:18 Follow up: Response: No adverse reaction kb4 Disposition: 08/09 20:25 Chart complete. cp Disposition Summary: 08/08/25 23:03 Discharge Ordered Notes: Location: Home cp Problem: new cp Symptoms: have improved cp Condition: Stable cp Diagnosis - Contusion of unspecified part of head, initial encounter cp - Contusion of left upper arm cp - Contusion of left hip cp - Contusion of left knee cp - Contusion of left lower leg cp - Fall on same level from slipping, tripping and stumbling with subsequent striking cp against object Followup: cp - With: Private Physician - When: 2 - 3 days - Reason: Recheck today's complaints Discharge Instructions: - Discharge Summary Sheet cp - Contusion cp - Facial or Scalp Contusion cp - Head Injury, Adult cp Forms: - Medication Reconciliation Form cp - Antibiotic Education cp - Prescription Opioid Use cp - Patient Portal Instructions cp - Leadership Thank You Letter cp Prescriptions: - Ibuprofen 800 mg Oral Tablet - take 1 tablet ORAL route every 8 hours As needed take with food; 30 tablet; cp Refills: 0, Product Selection Permitted - Cyclobenzaprine 10 mg Oral Tablet - take 1 tablet ORAL route every 8 hours As needed; 30 tablet; Refills: 0, cp Product Selection Permitted Addendum: 08/10/2025 05:54 Co-signature as Attending Physician, Cedrick Figueredo DO I agree with the assessment and t t7 plan of care. Signatures: Dispatcher [employer] EDMS Hudson Nieves PA-C PA-C cp Eddleman, Michelle, RN RN me1 Amanda Paez RN RN kb4 Cedrick Figueredo, DO tt7 Corrections: (The following items were deleted from the chart) 08/08 20:29 20:29 Facial Bones W/ MPR+CT.RAD.BRZ ordered. EDMS EDMS 20:29 20:29 Humerus Left+RAD.RAD.BRZ ordered. EDMS EDMS 20: 20:29 Femur Left+RAD.RAD.BRZ ordered. EDMS EDMS 20: 20:29 Pelvis+RAD.RAD.BRZ ordered. EDMS EDMS 20: 20:29 Tib Fib Left+RAD.RAD.BRZ ordered. EDMS EDMS 08/09 20:19 20:16 Constitutional: Negative for body aches, chills, fever, poor PO intake, cp cp 20:19 20:16 Cardiovascular: Negative for chest pain, palpitations, cp cp 20:19 20:16 Respiratory: Negative for cough, shortness of breath, wheezing, cp cp 20:19 20:16 Abdomen/GI: Negative for abdominal pain, vomiting, diarrhea, constipation, cp cp 20:19 20:16 Back: Negative for decreased range of motion, cp cp 20:19 20:16 MS/extremity: Positive for pain, of the left hand and left upper arm and left cp upper leg and left lower leg, Negative for decreased range of motion, deformity, cp 20:19 20:16 Eyes: Negative for injury, pain, redness, and discharge, cp cp 20:19 20:16 ENT: Positive for left era pain, cp cp 20:19 20:16 Neuro: Positive for headache, Negative for altered mental status, loss of cp consciousness, syncope, weakness, cp 20:19 20:16 All other systems are negative, cp cp
[2025-08-08 23:54] VITALS: TEMP 98.3
[2025-08-08 23:59] VITALS: BP 123/65; O2SAT 97
== END 2025-08-08 23:31 | disposition home or self-care (01) ==
LOC: ER 19:12
DX: S40.022A Contusion of left upper arm, initial encounter (principal); S70.02XA Contusion of left hip, initial encounter; S80.02XA Contusion of left knee, initial encounter; S80.12XA Contusion of left lower leg, initial encounter; W01.198A Fall on same level from slipping, tripping and stumbling with subsequent striking against other object, initial encounter; K21.9 Gastro-esophageal reflux disease without esophagitis; Y93.9 Activity, unspecified; Y92.9 Unspecified place or not applicable
CPT/HCPCS: 70450; 70486; 72125; 72170; 73552; 76377; 99283